=== PATIENT | male | born 1990 | race Caucasian/White ===

== ENCOUNTER 2024-02-10 16:05 | Emergency (ER) | payer SELFPAY ==
[2024-02-10 16:24] VITALS: BP 138/81; PULSE 84; RESP 18; TEMP 98; BMI 33.0
== END 2024-02-10 18:07 | disposition home or self-care (01) ==
LOC: JERFT 16:05
DX: S92.422A Displaced fracture of distal phalanx of left great toe, initial encounter for closed fracture (principal); M79.675 Pain in left toe(s); X50.9XXA Other and unspecified overexertion or strenuous movements or postures, initial encounter; Y92.410 Unspecified street and highway as the place of occurrence of the external cause; Y93.01 Activity, walking, marching and hiking
CPT/HCPCS: 73610-TC-LT-FY; 73630-TC-LT; 99283-25